=== PATIENT | male | born 1980 | race Caucasian/White ===

== ENCOUNTER 2023-07-05 13:51 | Outpatient (CLI) | payer OTHER, SELFPAY ==
--- NOTE | ~2023-07-05 | CT_ITS ---
EXAMINATION: CT abdomen wo con DATE: 07/05/2023 14:13 INDICATION: Right upper quadrant abdominal pain, nausea, swelling of abdomen. TECHNIQUE: Computed tomography (CT) of the abdomen was performed without intravenous contrast. Automa shahab exposure control and iterative reconstruction technique were employed. Exam dose: 309.07 mGy-cm total exam DLP. COMPARISON: None. FINDINGS: The lung bases are clear. Normal heart size. No pericardial or pleural effusion. Small sliding hiatal hernia. The gallbladder is contracted. No pericholecystic fluid or fat stranding. No bile duct or pancreatic duct dilatation. No hepatic, splenic, pancreatic, and adrenal or renal space-occupying mass lesion is evident on this limited noncontrast examination. No urinary tract calculus or hydroureteronephrosis is detected. Normal caliber of the abdominal aorta. No intraperitoneal or retroperitoneal mass lesion or adenopath y or ascites. The appendix is partially included in this examination and appears normal. No bowel obstruction or in traperitoneal free air. Small fat-containing umbilical hernia. Severe degenerative disc disease at L5-S1. No suspicious osteolytic or osteoblastic lesions are noted . IMPRESSION: Small sliding hiatal hernia Normal appendix Severe degenerative disc disease at L5-S1 Reviewed, dictated and finalized at [facility]. Reviewed, dictated and finalized at [facility].
== END 2023-07-05 13:52 | disposition home or self-care (01) ==
PROVIDERS: PCP Family Medicine; Visit Provider Surgery
DX: R19.01 Right upper quadrant abdominal swelling, mass and lump (principal); K44.9 Diaphragmatic hernia without obstruction or gangrene; M51.37 Other intervertebral disc degeneration, lumbosacral region
CPT/HCPCS: 74150